=== PATIENT | male | born 1985 ===

== ENCOUNTER 2017-01-12 02:16 | Emergency (ER) | payer SELFPAY ==
[2017-01-12 02:16] VITALS: BMI 22.1
[2017-01-12 02:22] VITALS: TEMP 98.4
--- NOTE | 2017-01-12 02:40 | ED PDOC ---
Arrival/HPI - General Chief Complaint: GI Problem Time Seen by Provider: 01/12/17 02:37 Historian: Patient - History of Present Illness Narrative History of Present Illness (Text): 01/12/17 02:28 A 31 year old male, who has no past medical history, presents to the emergency department complaining of nausea and vomiting for the past 5 days. Patient states he has been taking 5-6 Percocets a day for 3 years. Patient states he stopped taking Percocet 4 days ago and is now experiencing nausea and vomiting. Patient was seen at [facility] 2 days prior, was given IV Fluids, and discharged home , but symptoms have not improved. Patient also experiencing some abdominal pain. Patient denies of diarrhea, fever, chills, chest pain, shortness of breath, cough, headache, urinary symptoms, or any other complaints. Time/Duration: < week (5 days) Symptom Onset: Gradual Symptom Course: Unchanged Activities at Onset: Rest, Light Context: Home Past Medical History - Provider Review Nursing Documentation Reviewed: Yes - Psychiatric Hx Depression: No Hx Emotional Abuse: No Hx Physical Abuse: No Hx Substance Use: Yes (3 years) - Suicidal Assessment Feels Threatened In Home Enviroment: No Family/Social History - Physician Review Nursing Documentation Reviewed: Yes Family/Social History: No Known Family HX Smoking Status: Light Smoker < 10 Cigarettes Daily Hx Alcohol Use: No Hx Substance Use: Yes (3 years) Substance used: Percocet Hx Substance Use Treatment: No Allergies/Home Meds Allergies/Adverse Reactions: Allergies No Known Allergies Allergy (Verified 04/19/12 16:59) Review of Systems - Physician Review All systems were reviewed & negative as marked: Yes - Review of Systems Constitutional: Normal. absent: Fevers, Night Sweats Eyes: Normal ENT: Normal Respiratory: Normal. absent: SOB, Cough Cardiovascular: Normal. absent: Chest Pain Gastrointestinal: Abdominal Pain, Nausea, Vomiting. absent: Diarrhea Genitourinary Male: Normal. absent: Dysuria, Frequency, Urinary Output Changes Musculoskeletal: Normal Skin: Normal Neurological: Normal. absent: Headache Psychiatric: Normal Physical Exam Vital Signs Reviewed: Yes Vital Signs Temp Pulse Resp BP Pulse Ox 01/12/17 04:54 61 18 120/62 96 01/12/17 02:22 98.4 F 63 16 125/85 99 Temperature: Afebrile Blood Pressure: Normal Pulse: Regular Respiratory Rate: Normal Appearance: Positive for: Well-Appearing, Non-Toxic, Comfortable Pain Distress: None Mental Status: Positive for: Alert and Oriented X 3 - Systems Exam Head: Present: Atraumatic, Normocephalic Pupils: Present: PERRL Extroacular Muscles: Present: EOMI Conjunctiva: Present: Normal Mouth: Present: Moist Mucous Membranes Neck: Present: Normal Range of Motion Respiratory/Chest: Present: Clear to Auscultation, Good Air Exchange. No: Respiratory Distress, Accessory Muscle Use Cardiovascular: Present: Regular Rate and Rhythm, Normal S1, S2. No: Murmurs Abdomen: Present: Normal Bowel Sounds. No: Tenderness, Distention, Peritoneal Signs Back: Present: Normal Inspection Upper Extremity: Present: Normal Inspection. No: Cyanosis, Edema Lower Extremity: Present: Normal Inspection. No: Edema Neurological: Present: GCS=15, CN II-XII Intact, Speech Normal Skin: Present: Warm, Dry, Normal Color. No: Rashes Psychiatric: Present: Alert, Oriented x 3, Normal Insight, Normal Concentration Medical Decision Making ED Course and Treatment: 01/12/17 02:35 Impression: 31 year old male with nausea and vomiting. Normal physical exam. Plan: -- CT Abd/Pelvis -- Labs -- IV Fluids -- Zofran -- Reglan -- Ativan -- Reassess and disposition Progress Notes: 01/12/17 04:50 CT Abdomen and Pelvis With Intravenous Contrast FINDINGS: Limitations: Motion artifact - mild. Lower thorax: Linear atelectasis/scarring RIGHT middle lobe. ABDOMEN: Liver: Few too small to characterize lesions. Gallbladder and bile ducts: No calcified stones. No ductal dilation. Pancreas: No ductal dilation. No mass. Spleen: No splenomegaly. Adrenals: No mass. Kidneys and ureters: No mass. No hydronephrosis. Stomach and bowel: [id number] mural thickening of large bowel. No obstruction. Appendix: Normal caliber. No inflammation. PELVIS: Bladder: Unremarkable. Reproductive: Unremarkable as visualized. ABDOMEN and PELVIS: Intraperitoneal space: No significant fluid collection. No free air. Bones/joints: Small lucent lesion with sclerotic margins within RIGHT femur, doubtful significance. No acute fracture. Soft tissues: Unremarkable. Vasculature: Unremarkable. No aneurysm. Lymph nodes: No pathologically enlarged lymph nodes. IMPRESSION: 1. Colitis, nonspecific. Consider inflammatory or infectious etiologies. 2. Incidental/non-acute findings are described above. 01/12/17 06:00 On re-evaluation, patient feels better and is in no acute distress. Tolerating PO. I have discussed the results and plan with the patient, who expresses understanding. Patient in agreement with plan to be discharged home. Patient is stable for discharge. Patient was instructed to follow up with physician or return if symptoms worsen or new concerning symptoms arise. Re-evaluation Time: 06:00 Reassessment Condition: Re-examined, Improved - Lab Interpretations Lab Results: 01/12/17 02:40 01/12/17 02:40 Lab Results 01/12/17 02:40: Sodium 142, Potassium 3.6, Chloride 99, Carbon Dioxide 29, Anion Gap 18, BUN 17, Creatinine 1.0, Est GFR ( Amer) > 60, Est GFR (Non- Af Amer) > 60, Random Glucose 111 H, Calcium 9.8, Total Bilirubin 1.5 H, AST 32 , ALT 51, Alkaline Phosphatase 53, Total Protein 7.6, Albumin 4.6, Globulin 2.9 , Albumin/Globulin Ratio 1.6, Lipase 94 01/12/17 02:40: WBC 13.9 H, RBC 4.58, Hgb 14.2, Hct 41.6 L, MCV 90.8, MCH 31.0, MCHC 34.1, RDW 12.2, Plt Count 324, MPV 10.1, Gran % 80.9 H, Lymph % (Auto) 11.7 L, Tyrrell % (Auto) 7.2 H, Eos % (Auto) 0.1 L, Baso % (Auto) 0.1, Gran # 11.28 H, Lymph # 1.6, Tyrrell # 1.0 H, Eos # 0.0, Baso # 0.01 I have reviewed the lab results: Yes - RAD Interpretation Radiology Orders: 01/12/17 03:29 ABD & PELVIS IV CONTRAST ONLY [CT] Stat - Medication Orders Current Medication Orders: Sodium Chloride (Sodium Chloride 0.9%) 1,000 mls @ 1,000 mls/hr IV .Q1H MIGDALIA Last Admin: 01/12/17 03:47 Dose: Discontinued Medications Iohexol (Omnipaque 350 100 Ml) Confirm Administered Dose 350 mg .ROUTE .STK-MED ONE Stop: 01/12/17 03:36 Lorazepam (Ativan) 0.5 mg IVP ONCE ONE PRN Reason: Protocol Stop: 01/12/17 03:10 Last Admin: 01/12/17 03:24 Dose: 0.5 mg Metoclopramide HCl (Reglan) 10 mg IVP ONCE ONE Stop: 01/12/17 03:09 Last Admin: 01/12/17 03:24 Dose: 10 mg Ondansetron HCl (Zofran Inj) 4 mg IVP STAT STA Stop: 01/12/17 02:38 Last Admin: 01/12/17 02:47 Dose: 4 mg - Scribe Statement Pavel Kay training under Melinda Murcia. Provider Attestation: All medical record entries made by the Dileepibshane were at my direction and personally dictated by me. I have reviewed the chart and agree that the record accurately reflects my personal performance of the history, physical exam, medical decision making, and the department course for this patient. I have also personally directed, reviewed, and agree with the discharge instructions and disposition. Disposition/Present on Arrival - Present on Arrival Any Indicators Present on Arrival: No History of DVT/PE: No History of Uncontrolled Diabetes: No Urinary Catheter: No History of Decub. Ulcer: No History Surgical Site Infection Following: None - Disposition Have Diagnosis and Disposition been Completed?: Yes Diagnosis: Colitis Disposition: HOME/ ROUTINE Disposition Time: 06:00 Patient Problems: Current Active Problems Problem Status Onset Colitis Acute Condition: GOOD Discharge Instructions (ExitCare): Colitis (ED) Prescriptions: Metronidazole [Flagyl] 500 mg PO TID #15 tab Ondansetron [Zofran Odt] 8 mg PO TID PRN #10 odt PRN Reason: Nausea/Vomiting Referrals: PCP,NO [Primary Care Provider] - Follow up with primary
[2017-01-12] MEDS: Sodium Chloride 0.9% 1,000 ML IV SCH ×2 (02:47→03:47)
[2017-01-12 03:14] LABS: BASO # 0.01 K/mm3 (0.0-2.0); BASO % 0.1 % (0.0-3.0); EOS % 0.1 % (1.5-5.0); GRAN # 11.28 (1.4-6.5); GRAN % 80.9 % (50.0-68.0); HEMOGLOBIN 14.2 gm/dL (14.0-18.0); LYMPH # 1.6 (1.2-3.4); LYMPH % 11.7 % (22.0-35.0); MEAN CELL VOLUME 90.8 fL (80.0-105.0); MEAN CORPUSCULAR HGB CONC 34.1 g/dl (31.0-37.0); MEAN PLATELET VOLUME 10.1 fl (7.0-11.0); MONO % 7.2 % (1.0-6.0); PLATELET COUNT 324 10^3/uL (120.0-450.0); RBC 4.58 10^6/uL (3.5-6.1); RED CELL DISTRIBUTION WIDTH 12.2 % (11.5-14.5); WHITE BLOOD COUNT 13.9 10^3/ul (4.5-11.0)
[2017-01-12 03:19] LABS: ALB/GLOB RATIO 1.6 (1.1-1.8); ALBUMIN 4.6 g/dL (3.0-4.8); ALT/SGPT 51 U/L (7-56); AST/SGOT 32 U/L (15-59); BLOOD UREA NITROGEN 17 mg/dL (7-21); CALCIUM 9.8 mg/dL (8.4-10.5); GFR AFRICAN-AMERICAN > 60; GFR NON-AFRICAN AMERICAN > 60; LIPASE 94 U/L (23-300)
[2017-01-12] MEDS ORDERED: Iohexol 350 MG/100 ML VIAL ONE (03:35)
--- NOTE | 2017-01-12 04:40 | CT ---
EXAM: CT Abdomen and Pelvis With Intravenous Contrast CLINICAL HISTORY: 31 years old, male; Pain; Abdominal pain; Patient HX: Rlq pain TECHNIQUE: Axial computed tomography images of the abdomen and pelvis with intravenous contrast. This CT exam was performed using one or more of the following dose reduction techniques: automated exposure control, adjustment of the mA and/or kV according to patient size, and/or use of iterative reconstruction technique. Coronal and sagittal reformatted images were created and reviewed. CONTRAST: 95 mL of OMNIPAQUE 350 administered intravenously. COMPARISON: No relevant prior studies available. FINDINGS: Limitations: Motion artifact - mild. Lower thorax: Linear atelectasis/scarring RIGHT middle lobe. ABDOMEN: Liver: Few too small to characterize lesions. Gallbladder and bile ducts: No calcified stones. No ductal dilation. Pancreas: No ductal dilation. No mass. Spleen: No splenomegaly. Adrenals: No mass. Kidneys and ureters: No mass. No hydronephrosis. Stomach and bowel: Munr-[id number]-thtvpuok mural thickening of large bowel. No obstruction. Appendix: Normal caliber. No inflammation. PELVIS: Bladder: Unremarkable. Reproductive: Unremarkable as visualized. ABDOMEN and PELVIS: Intraperitoneal space: No significant fluid collection. No free air. Bones/joints: Small lucent lesion with sclerotic margins within RIGHT femur, doubtful significance. No acute fracture. Soft tissues: Unremarkable. Vasculature: Unremarkable. No aneurysm. Lymph nodes: No pathologically enlarged lymph nodes. IMPRESSION: 1. Colitis, nonspecific. Consider inflammatory or infectious etiologies. 2. Incidental/non-acute findings are described above.
[2017-01-12 04:55] VITALS: BP 120/62; PULSE 61; RESP 18; O2SAT 96
== END 2017-01-12 06:10 | disposition home or self-care (01) ==
LOC: ED 02:16
DX: K52.9 Noninfective gastroenteritis and colitis, unspecified (principal)
CPT/HCPCS: 74177; 80053; 83690; 85025; 96361; 96374; 96375; 99283; J2060; J2405; J2765; J7040; Q9967

== ENCOUNTER 2017-01-12 18:28 | Emergency (ER) | payer SELFPAY ==
[2017-01-12 18:29] VITALS: BMI 22.1
[2017-01-12 18:34] VITALS: BP 117/70; PULSE 76; TEMP 99.6; O2SAT 98
[2017-01-12] MEDS ORDERED: Sodium Chloride 0.9% 1,000 ML IV SCH (19:45)
[2017-01-12 19:51] LABS: BASO # 0.03 K/mm3 (0.0-2.0); BASO % 0.3 % (0.0-3.0); EOS % 0.1 % (1.5-5.0); GRAN # 6.85 (1.4-6.5); GRAN % 73.5 % (50.0-68.0); HEMOGLOBIN 14.1 gm/dL (14.0-18.0); LYMPH # 1.6 (1.2-3.4); LYMPH % 17.4 % (22.0-35.0); MEAN CELL VOLUME 89.2 fL (80.0-105.0); MEAN CORPUSCULAR HEMOGLOBIN 31.1 pg (25.0-35.0); MEAN CORPUSCULAR HGB CONC 34.9 g/dl (31.0-37.0); MEAN PLATELET VOLUME 9.5 fl (7.0-11.0); MONO # 0.8 (0.1-0.6); MONO % 8.7 % (1.0-6.0); PLATELET COUNT 289 10^3/uL (120.0-450.0); RBC 4.53 10^6/uL (3.5-6.1); WHITE BLOOD COUNT 9.3 10^3/ul (4.5-11.0)
[2017-01-12 19:59] LABS: ALB/GLOB RATIO 1.4 (1.1-1.8); ALBUMIN 4.2 g/dL (3.0-4.8); ALT/SGPT 58 U/L (7-56); AST/SGOT 48 U/L (15-59); BLOOD UREA NITROGEN 13 mg/dL (7-21); CALCIUM 9.2 mg/dL (8.4-10.5); GFR AFRICAN-AMERICAN > 60; GFR NON-AFRICAN AMERICAN > 60
[2017-01-12 20:44] VITALS: RESP 16
--- NOTE | 2017-01-13 02:24 | ED PDOC ---
Arrival/HPI - General Chief Complaint: GI Problem Time Seen by Provider: 01/12/17 18:41 Historian: Patient - History of Present Illness Narrative History of Present Illness (Text): 01/12/17 19:30 Valente Priest is a 31 year old male who presents to the Emergency department complaining of nausea and vomiting today. Patient was seen earlier today for similar complaints after he stopped taking Percocet everyday for 3 years. Patient had full-work up performed, was treated for colitis, and discharged home. Patient states nausea and vomiting returned later in the day. Patient denies any fever, chills, chest pain, shortness of breath, diarrhea, urinary symptoms, back pain, neck pain, headache, dizziness, or any other complaints. Time/Duration: Other (today) Symptom Onset: Gradual Symptom Course: Unchanged Activities at Onset: Rest, Light Context: Home Past Medical History - Provider Review Nursing Documentation Reviewed: Yes - Psychiatric Hx Depression: No Hx Emotional Abuse: No Hx Physical Abuse: No Hx Substance Use: Yes (3 years) - Suicidal Assessment Feels Threatened In Home Enviroment: No Family/Social History - Physician Review Nursing Documentation Reviewed: Yes Family/Social History: Unknown Family HX Smoking Status: Light Smoker < 10 Cigarettes Daily Hx Alcohol Use: No Hx Substance Use: Yes (3 years) Substance used: Percocet Hx Substance Use Treatment: No Allergies/Home Meds Allergies/Adverse Reactions: Allergies No Known Allergies Allergy (Verified 01/12/17 18:34) Review of Systems - Physician Review All systems were reviewed & negative as marked: Yes - Review of Systems Constitutional: Normal. absent: Fevers Eyes: Normal ENT: Normal Respiratory: Normal. absent: SOB, Cough Cardiovascular: Normal. absent: Chest Pain Gastrointestinal: Nausea, Vomiting. absent: Diarrhea Genitourinary Male: Normal. absent: Dysuria, Frequency, Hematuria, Urinary Output Changes Musculoskeletal: Normal. absent: Back Pain, Neck Pain Skin: Normal. absent: Rash Neurological: Normal. absent: Headache, Dizziness Endocrine: Normal Hemo/Lymphatic: Normal Psychiatric: Normal Physical Exam Vital Signs Reviewed: Yes Vital Signs Temp Pulse Resp BP Pulse Ox 01/12/17 20:43 16 98 01/12/17 18:30 99.6 F 76 18 117/70 98 Temperature: Afebrile Blood Pressure: Normal Pulse: Regular Respiratory Rate: Normal Appearance: Positive for: Well-Appearing, Non-Toxic, Comfortable Pain Distress: None Mental Status: Positive for: Alert and Oriented X 3 - Systems Exam Head: Present: Atraumatic, Normocephalic Pupils: Present: PERRL Extroacular Muscles: Present: EOMI Conjunctiva: Present: Normal Mouth: Present: Moist Mucous Membranes Neck: Present: Normal Range of Motion Respiratory/Chest: Present: Clear to Auscultation, Good Air Exchange. No: Respiratory Distress, Accessory Muscle Use Cardiovascular: Present: Regular Rate and Rhythm, Normal S1, S2. No: Murmurs Abdomen: Present: Normal Bowel Sounds. No: Tenderness, Distention, Peritoneal Signs Back: Present: Normal Inspection Upper Extremity: Present: Normal Inspection. No: Cyanosis, Edema Lower Extremity: Present: Normal Inspection. No: Edema Neurological: Present: GCS=15, CN II-XII Intact, Speech Normal Skin: Present: Warm, Dry, Normal Color. No: Rashes Psychiatric: Present: Alert, Oriented x 3, Normal Insight, Normal Concentration Medical Decision Making ED Course and Treatment: 01/12/17 19:30 Impression: 31 year old male complaining of nausea and vomiting. Differential Diagnosis included but are not limited to: vomiting Plan: -- Labs -- IV fluids -- Reglan -- Reassess and disposition Prior Visits: Notes and results from previous visits were reviewed. Pt seen earlier today for similar complaints and discharged home. Progress Notes: 01/12/17 20:40 On reevaluation the patient feels better and is in no acute distress. I have discussed the results and plan with the patient, who expresses understanding. Patient given the opportunity to ask question, all questions were answered and there is agreement with the plan to discharge the patient home. Patient is stable for discharge. Patient was instructed to follow up with physician/clinic in 1-2 days or return if symptoms persist/worsen or new concerning symptoms arise. - Lab Interpretations Lab Results: 01/12/17 19:38 01/12/17 19:38 Lab Results 01/12/17 19:38: Sodium 141, Potassium 3.7, Chloride 101, Carbon Dioxide 27, Anion Gap 17, BUN 13, Creatinine 0.9, Est GFR ( Amer) > 60, Est GFR (Non- Af Amer) > 60, Random Glucose 104, Calcium 9.2, Total Bilirubin 2.0 H, AST 48, ALT 58 H, Alkaline Phosphatase 45, Total Protein 7.4, Albumin 4.2, Globulin 3.1 , Albumin/Globulin Ratio 1.4 01/12/17 19:38: WBC 9.3 D, RBC 4.53, Hgb 14.1, Hct 40.4 L, MCV 89.2, MCH 31.1, MCHC 34.9, RDW 12.0, Plt Count 289, MPV 9.5, Gran % 73.5 H, Lymph % (Auto) 17.4 L, Bee % (Auto) 8.7 H, Eos % (Auto) 0.1 L, Baso % (Auto) 0.3, Gran # 6.85 H, Lymph # 1.6, Bee # 0.8 H, Eos # 0.0, Baso # 0.03 I have reviewed the lab results: Yes - Medication Orders Current Medication Orders: Discontinued Medications Sodium Chloride (Sodium Chloride 0.9%) 1,000 mls @ 1,000 mls/hr IV .Q1H MIGDALIA Last Admin: 01/12/17 19:48 Dose: 1,000 mls/hr Metoclopramide HCl (Reglan) 10 mg IVP ONCE ONE Stop: 01/12/17 19:32 Last Admin: 01/12/17 19:48 Dose: 10 mg - Scribe Statement The provider has reviewed the documentation as recorded by the Delia Murcia Provider Scribe Attestation: All medical record entries made by the Dileepibshane were at my direction and personally dictated by me. I have reviewed the chart and agree that the record accurately reflects my personal performance of the history, physical exam, medical decision making, and the department course for this patient. I have also personally directed, reviewed, and agree with the discharge instructions and disposition. Disposition/Present on Arrival - Present on Arrival Any Indicators Present on Arrival: No History of DVT/PE: No History of Uncontrolled Diabetes: No Urinary Catheter: No History of Decub. Ulcer: No History Surgical Site Infection Following: None - Disposition Have Diagnosis and Disposition been Completed?: Yes Diagnosis: Vomiting alone Disposition: HOME/ ROUTINE Disposition Time: 20:43 Condition: GOOD Discharge Instructions (ExitCare): Acute Nausea and Vomiting (ED) Prescriptions: Metoclopramide [Reglan] 10 mg PO QID #12 tab
== END 2017-01-12 20:44 | disposition home or self-care (01) ==
LOC: ED 18:28
DX: R11.10 Vomiting, unspecified (principal)
CPT/HCPCS: 80053; 85025; 96374; 99283; J2765; J7040

== ENCOUNTER 2017-01-14 00:47 | Emergency (ER) | payer SELFPAY ==
[2017-01-14 00:47] VITALS: BMI 22.1
== END 2017-01-14 02:16 | disposition left against medical advice (07) ==
LOC: ED 00:47
DX: Z02.89 Encounter for other administrative examinations (principal); R11.0 Nausea

== ENCOUNTER 2017-01-19 15:47 | Emergency (ER) | payer SELFPAY ==
[2017-01-19 15:48] VITALS: BMI 22.1
[2017-01-19 15:58] VITALS: TEMP 99
[2017-01-19] MEDS ORDERED: Sodium Chloride 0.9% 1,000 ML IV STA (16:42)
--- NOTE | 2017-01-19 16:55 | ED PDOC ---
Arrival/HPI - General Historian: Patient - General Chief Complaint: GI Problem Time Seen by Provider: 01/19/17 16:14 - History of Present Illness Narrative History of Present Illness (Text): 01/19/17 16:44 31 year old male with history percocet abuse presents with weakness and vomiting. Patient takes percocet recreationally (5-8 10mg daily) for 3 years and stopped 2 weeks ago. Patient started having nausea and vomiting around that time. Patient was here in the ED 1 week ago for vomiting and abdominal pain. He was found to have colitis through the abdominal CT. Patient was discharge on a 5 day course of PO Flagyl. Patient reports the Flagyl made his vomiting worse so he stopped taking it after one day. The abdominal pain resolved but vomiting resists. Patient is only able to tolerate water, anything else makes him to vomiting immediately. The vomiting episodes were NBNB. He vomits whenever he eats. Patient denies having headache, fever, shortness of breath, chest pain, diarrhea, or urinary symptoms. (Destinee Valente) Past Medical History - Provider Review Nursing Documentation Reviewed: Yes - Infectious Disease Hx of Infectious Diseases: None - Psychiatric Hx Depression: No Hx Emotional Abuse: No Hx Physical Abuse: No Hx Substance Use: Yes (3 years) Other/Comment: substance abuse from percocet - Anesthesia Hx Anesthesia: No Hx Anesthesia Reactions: No Hx Malignant Hyperthermia: No - Suicidal Assessment Feels Threatened In Home Enviroment: No Family/Social History - Physician Review Nursing Documentation Reviewed: Yes Family/Social History: Unknown Family HX Smoking Status: Light Smoker < 10 Cigarettes Daily Hx Alcohol Use: No Hx Substance Use: Yes (3 years) Substance used: Percocet Hx Substance Use Treatment: No Allergies/Home Meds Allergies/Adverse Reactions: Allergies No Known Allergies Allergy (Verified 01/19/17 15:58) Home Medications: Home Meds Medication Instructions Recorded Confirmed metroNIDAZOLE [Flagyl] 500 mg PO TID 01/19/17 01/19/17 Review of Systems - Physician Review All systems were reviewed & negative as marked: Yes - Review of Systems Constitutional: Fatigue, Other (chills). absent: Fevers Eyes: Normal ENT: Normal Respiratory: Normal. absent: SOB, Cough Cardiovascular: Normal. absent: Chest Pain, Palpitations, Syncope Gastrointestinal: Nausea, Vomiting, Appetite Changes. absent: Abdominal Pain, Diarrhea Genitourinary Male: Normal. absent: Dysuria, Frequency, Hematuria Musculoskeletal: Normal. absent: Arthralgias, Back Pain, Neck Pain Skin: Normal. absent: Rash, Pruritis, Skin Lesions Neurological: Normal. absent: Headache, Dizziness, Focal Weakness, Speech Changes Endocrine: Normal Hemo/Lymphatic: Normal Psychiatric: Normal. absent: Anxiety Physical Exam Vital Signs Reviewed: Yes Temperature: Afebrile Blood Pressure: Normal Pulse: Tachycardic Respiratory Rate: Normal Appearance: Positive for: Well-Appearing, Non-Toxic, Comfortable Pain Distress: None Mental Status: Positive for: Alert and Oriented X 3 - Systems Exam Head: Present: Atraumatic, Normocephalic Pupils: Present: PERRL Extroacular Muscles: Present: EOMI Conjunctiva: Present: Normal Mouth: Present: Moist Mucous Membranes Neck: Present: Normal Range of Motion Respiratory/Chest: Present: Clear to Auscultation, Good Air Exchange. No: Respiratory Distress, Accessory Muscle Use Cardiovascular: Present: Regular Rate and Rhythm, Normal S1, S2. No: Murmurs Abdomen: Present: Tenderness (epigastric tenderness), Normal Bowel Sounds. No: Distention, Rebound, Guarding, McBurney's Point Tender, Hernias Upper Extremity: Present: Normal Inspection, Neurovascularly Intact. No: Cyanosis, Edema Lower Extremity: Present: Normal Inspection, Neurovascularly Intact. No: Edema Neurological: Present: GCS=15, CN II-XII Intact, Speech Normal Skin: Present: Warm, Dry, Normal Color. No: Rashes Psychiatric: Present: Alert, Oriented x 3, Normal Insight, Normal Concentration Medical Decision Making ED Course and Treatment: 01/19/17 17:01 -CBC, CMP -IVF -Reglan -Pepcid DDx: Dehydration, colitis, gastroenteritis 01/19/17 17:36 CBC and CMP reviewed, unremarkable. Progress Note: Patient's symptoms improved, denies feeling weak, nausea or vomiting. No abdominal or diarrhea reported. Patient is tolerating oral fluid without feel nausea. Patient was instructed to follow at [facility] after ED discharge. Instructed to go to the nearest ED if symptoms worsen or returns. (Destinee Valente) In agreement with resident note which contains more details about the patient. Patient was seen and evaluated with resident. Came up with plan and treatment together. Patient presents to emergency department with 1 week duration of vomiting. Evaluated previously and was discharged on Flagyl, but states he did not take meds because it made symptoms worse. Will order labs, IVF, reglan and pepcid. States he feels fine after treatment and feel comfortable with discharge home. (Reuben Costa) - Lab Interpretations Lab Results: 01/19/17 16:44 01/19/17 16:44 Lab Results 01/19/17 16:44: Sodium 141, Potassium 3.9, Chloride 97 L, Carbon Dioxide 29, Anion Gap 19, BUN 15, Creatinine 0.9, Est GFR ( Amer) > 60, Est GFR (Non- Af Amer) > 60, Random Glucose 87, Calcium 9.6, Total Bilirubin 1.2, AST 29, ALT 46, Alkaline Phosphatase 51, Total Protein 7.4, Albumin 4.5, Globulin 2.9, Albumin/Globulin Ratio 1.6 01/19/17 16:44: WBC 8.4, RBC 4.75, Hgb 14.8, Hct 41.8 L, MCV 88.0, MCH 31.2, MCHC 35.4, RDW 12.1, Plt Count 315, MPV 9.8, Gran % 67.3, Lymph % (Auto) 21.0 L , Bland % (Auto) 10.5 H, Eos % (Auto) 0.7 L, Baso % (Auto) 0.5, Gran # 5.68, Lymph # 1.8, Bland # 0.9 H, Eos # 0.1, Baso # 0.04 - Medication Orders Current Medication Orders: Discontinued Medications Famotidine (Pepcid) 20 mg IVP STAT STA Stop: 01/19/17 16:43 Last Admin: 01/19/17 16:49 Dose: 20 mg Sodium Chloride (Sodium Chloride 0.9%) 1,000 mls @ 999 mls/hr IV .Q1H1M STA Stop: 01/19/17 17:42 Last Admin: 01/19/17 16:46 Dose: 999 mls/hr Metoclopramide HCl (Reglan) 10 mg IVP STAT STA Stop: 01/19/17 16:43 Last Admin: 01/19/17 16:49 Dose: 10 mg - PA / HYDROGEOLOGY PROFESSOR / Resident Statement / has reviewed & agrees with the documentation as recorded. / has examined the patient and agrees with the treatment plan. Disposition/Present on Arrival - Present on Arrival Any Indicators Present on Arrival: No History of DVT/PE: No History of Uncontrolled Diabetes: No Urinary Catheter: No History of Decub. Ulcer: No History Surgical Site Infection Following: None - Disposition Have Diagnosis and Disposition been Completed?: Yes Disposition Time: 17:50 Patient Plan: Discharge - Disposition Diagnosis: Dehydration Disposition: HOME/ ROUTINE Condition: IMPROVED Discharge Instructions (ExitCare): Dehydration (ED) Additional Instructions: Valente Priest, thank you for letting us take care of you today. Your provider was Dr. Costa. You were treated for dehydration. The emergency medical care you received today was directed at your acute symptoms. If you were prescribed any medication, please fill it and take as directed. It may take several days for your symptoms to resolve. Return to the Emergency Department if your symptoms worsen, do not improve, or if you have any other problems. Please contact your doctor or call one of the physicians/clinics you have been referred to that are listed on the Patient Visit Information form that is included in your discharge packet. Bring any paperwork you were given at discharge with you along with any medications you are taking to your follow up visit. Our treatment cannot replace ongoing medical care by a primary care provider (PCP) outside of the emergency department. Thank you for allowing the [facility] team to be part of your care today. Drink water frequently to stay hydrated. Please make an appointment to follow up at [facility] clinic. Patient was instructed to go to the nearest ED if symptoms return or worsen. Referrals: Roni Mena, [Primary Care Provider] - Follow up with primary [facility] at [facility] [Outside] - Follow up with primary Forms: [employer] ([place])
[2017-01-19 17:07] LABS: ALB/GLOB RATIO 1.6 (1.1-1.8); ALBUMIN 4.5 g/dL (3.0-4.8); ALT/SGPT 46 U/L (7-56); AST/SGOT 29 U/L (15-59); BLOOD UREA NITROGEN 15 mg/dL (7-21); CALCIUM 9.6 mg/dL (8.4-10.5); GFR AFRICAN-AMERICAN > 60; GFR NON-AFRICAN AMERICAN > 60
[2017-01-19 17:15] LABS: BASO # 0.04 K/mm3 (0.0-2.0); BASO % 0.5 % (0.0-3.0); EOS # 0.1 (0.0-0.7); EOS % 0.7 % (1.5-5.0); GRAN # 5.68 (1.4-6.5); GRAN % 67.3 % (50.0-68.0); HEMOGLOBIN 14.8 gm/dL (14.0-18.0); LYMPH # 1.8 (1.2-3.4); MEAN CORPUSCULAR HEMOGLOBIN 31.2 pg (25.0-35.0); MEAN CORPUSCULAR HGB CONC 35.4 g/dl (31.0-37.0); MEAN PLATELET VOLUME 9.8 fl (7.0-11.0); MONO # 0.9 (0.1-0.6); MONO % 10.5 % (1.0-6.0); PLATELET COUNT 315 10^3/uL (120.0-450.0); RBC 4.75 10^6/uL (3.5-6.1); RED CELL DISTRIBUTION WIDTH 12.1 % (11.5-14.5); WHITE BLOOD COUNT 8.4 10^3/ul (4.5-11.0)
[2017-01-19 17:51] VITALS: BP 114/65; PULSE 86; RESP 18; O2SAT 100
== END 2017-01-19 17:51 | disposition home or self-care (01) ==
LOC: ED 15:47
DX: E86.0 Dehydration (principal)
CPT/HCPCS: 80053; 85025; 96361; 96374; 96375; 99284; J2765; J7040

== ENCOUNTER 2017-11-23 10:04 | Emergency (ER) | payer MEDICAID ==
[2017-11-23 10:15] VITALS: BMI 20.9
[2017-11-23 10:16] VITALS: BP 118/77; PULSE 70; RESP 18; TEMP 98.5; O2SAT 99
[2017-11-23] MEDS ORDERED: Sodium Chloride 0.9% 1,000 ML IV SCH (10:30)
[2017-11-23] MEDS ORDERED: Sodium Chloride 0.9% 1,000 ML IV STA (10:30)
--- NOTE | 2017-11-23 10:37 | ED PDOC ---
Arrival/HPI - General Time Seen by Provider: 11/23/17 10:22 Historian: Patient - History of Present Illness Narrative History of Present Illness (Text): 11/23/17 10:35 A 32 year old male, whose past medical history includes colitis, no known allergies, presents to the emergency department for vomiting and fatigue for the last 5 days. The patient reports that he was previously seen in [facility] 3 days ago and was discharged. He is complaining of feeling fatigued and vomiting, but he denies any abdominal pain or diarrhea, chest pain, headache, dizziness, denies travel outside of the of the country for the past 1/2 year, or any other complaints at this time. The patient states that he is in the emergency department today because he needs some IV fluids. 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 - Anesthesia Hx Anesthesia: No Hx Anesthesia Reactions: No Hx Malignant Hyperthermia: No - Suicidal Assessment Feels Threatened In Home Enviroment: No Family/Social History - Physician Review Nursing Documentation Reviewed: Yes Family/Social History: No Known Family HX Smoking Status: Light Smoker < 10 Cigarettes Daily Hx Alcohol Use: No Hx Substance Use: Yes (3 years) Substance used: Percocet Hx Substance Use Treatment: No Allergies/Home Meds Allergies/Adverse Reactions: Allergies No Known Allergies Allergy (Verified 01/19/17 15:58) Home Medications: Home Meds Medication Instructions Recorded Confirmed metroNIDAZOLE [Flagyl] 500 mg PO TID 01/19/17 01/19/17 Review of Systems - Physician Review All systems were reviewed & negative as marked: Yes - Review of Systems Constitutional: Fatigue. absent: Fevers Respiratory: absent: SOB, Cough, Sputum Cardiovascular: absent: Chest Pain Gastrointestinal: Nausea, Vomiting. absent: Abdominal Pain Musculoskeletal: absent: Arthralgias, Back Pain Skin: absent: Rash, Pruritis Neurological: absent: Headache, Dizziness Psychiatric: absent: Anxiety, Depression, Suicidal Ideation Physical Exam Vital Signs Reviewed: Yes Vital Signs Temp Pulse Resp BP Pulse Ox 11/23/17 10:15 98.5 F 70 18 118/77 99 Temperature: Afebrile Blood Pressure: Normal Pulse: Regular Respiratory Rate: Normal Appearance: Positive for: Well-Appearing, Non-Toxic, Comfortable Pain Distress: None Mental Status: Positive for: Alert and Oriented X 3 - Systems Exam Head: Present: Atraumatic, Normocephalic Pupils: Present: PERRL Extroacular Muscles: Present: EOMI Conjunctiva: Present: Normal Ears: Present: NORMAL TM, Normal Canal. No: Erythema Mouth: Present: Moist Mucous Membranes Pharnyx: No: ERYTHEMA, EXUDATE, TONSILS ENLARGED Nose (External): Present: Atraumatic. No: Abrasion, Contusion, Laceration, Lesions Nose (Internal): Present: Normal Inspection, No Active Bleeding. No: Rhinorrhea , Septal Deviation, Septal Hematoma, Epistaxis Neck: Present: Normal Range of Motion, Trachea Midline. No: MIDLINE TENDERNESS , Paraspinal Tenderness, Lymphadenopathy Respiratory/Chest: Present: Clear to Auscultation, Good Air Exchange. No: Respiratory Distress, Accessory Muscle Use, Wheezes, Retracting, Rhonchi Cardiovascular: Present: Regular Rate and Rhythm, Normal S1, S2. No: Murmurs Abdomen: Present: Normal Bowel Sounds, Other (negative betancourt signs, negative mcburney tenderness. ). No: Tenderness, Distention, Peritoneal Signs, Rebound, Guarding Back: Present: Normal Inspection Upper Extremity: Present: Normal Inspection. No: Cyanosis, Edema Lower Extremity: Present: Normal Inspection, NORMAL PULSES, Normal ROM, Capillary Refill < 2 s. No: Edema, Deformity Neurological: Present: GCS=15, CN II-XII Intact, Speech Normal, Motor Func Grossly Intact, Gait Normal, Memory Normal Skin: Present: Warm, Dry, Normal Color. No: Rashes Psychiatric: Present: Alert, Oriented x 3, Normal Insight, Normal Concentration Medical Decision Making ED Course and Treatment: 11/23/17 10:36 -labs/ck/ua -IVF/pepcid/zofran -Observe and reassess 11/23/17 14:14 -Chest xray show no active disease -Abdominal xray constipation with no obstruction, magcitrate ordered. -Abdominal sonogram Findings suggest mild fatty hepatic infiltration however other infiltrative hepatocellular disease process not excluded. -Labs are non-significant except K+ 3.3 (potassium chloride 40meq po ordered), elevation of AST/ALT and mild elevation of bilirubin noted. -UA show no UTI but there is glucose/protein -Drug screen show no acute findings -Pt. refused additional fluid or admission for observation, I offered admission but he declined. -I discussed the case and labs/radiology result with Dr. Judd, he suggest to discharge home with further testing or admission indicated at this time. Pt. has no abdominal pain, will discharge home. -I advised the patient to see his own pmd for annual check up to check hgba1c and outpatient GI follow up for this vomiting including h.pylori along with annual abdominal sonogram follow up regarding about this sonogram findings today. Pt. verbally expressed understanding. -Pt. is drinking fluid in the ER and eating, will discharge home and refused further IVF hydration. -Discharge home with magnesium citrate, pepcid, zofran, clear fluid diet, BRAT diet, avoid dairy product, follow up with your own pmd and GI within 2 days, return to the ER for any new or worsening signs or symptoms. - Lab Interpretations Lab Results: 11/23/17 10:42 11/23/17 10:42 Lab Results 11/23/17 10:42: WBC 11.1 H D, RBC 4.52, Hgb 13.8 L, Hct 39.9 L, MCV 88.3, MCH 30.5, MCHC 34.6, RDW 12.4, Plt Count 332, MPV 10.0, Gran % 68.2 H, Lymph % (Auto ) 22.1, Barnes % (Auto) 9.3 H, Eos % (Auto) 0.1 L, Baso % (Auto) 0.3, Gran # 7.55 H, Lymph # (Auto) 2.4, Barnes # (Auto) 1.0 H, Eos # (Auto) 0.0, Baso # (Auto) 0.03 11/23/17 10:42: Sodium 139, Potassium 3.3 L, Chloride 95 L, Carbon Dioxide 32, Anion Gap 15, BUN 11, Creatinine 1.0, Est GFR ( Amer) > 60, Est GFR (Non- Af Amer) > 60, Random Glucose 109, Calcium 9.2, Magnesium 1.9, Total Bilirubin 1.5 H, AST 60 H, ALT 87 H, Alkaline Phosphatase 50, Total Creatine Kinase 196, Total Protein 7.2, Albumin 4.5, Globulin 2.7, Albumin/Globulin Ratio 1.7, Lipase 75 11/23/17 10:40: Urine Opiates Screen Negative, Urine Methadone Screen Negative, Ur Barbiturates Screen Negative, Ur Phencyclidine Scrn Negative, Ur Amphetamines Screen Negative, U Benzodiazepines Scrn Negative, U Oth Cocaine Metabols Negative, U Cannabinoids Screen Negative 11/23/17 10:40: Urine Color Light orange, Urine Appearance Clear, Urine pH 6.5, Ur Specific Hartland 1.020, Urine Protein 100 H, Urine Glucose (UA) 100 H, Urine Ketones Trace H, Urine Blood Trace-lysed H, Urine Nitrate Negative, Urine Bilirubin Moderate H, Urine Urobilinogen >=8.0, Ur Leukocyte Esterase Negative, Urine RBC 1 - 3, Urine WBC 0 - 2, Ur Epithelial Cells 1 - 3, Amorphous Sediment Small, Urine Bacteria Neg, Urine Other Mucus - RAD Interpretation Radiology Orders: 11/23/17 10:31 CHEST PORTABLE [RAD] Stat 11/23/17 11:14 ABD 2 VIEWS (FLAT/UP OR DECUB) [RAD] Stat ABDOMEN COMPLETE [US] Stat Chest xray: HISTORY: Medical clearance COMPARISON: TheNo prior. FINDINGS: LUNGS: No active pulmonary disease. PLEURA: No significant pleural effusion identified, no pneumothorax apparent. CARDIOVASCULAR: Normal. OSSEOUS STRUCTURES: No significant abnormalities. VISUALIZED UPPER ABDOMEN: Normal. OTHER FINDINGS: None. IMPRESSION: No active disease. Abdominal xray: HISTORY: vomiting, r/o obstruction COMPARISON: No prior. FINDINGS: BOWEL: No evidence of acute mechanical bowel obstruction. . Stool and air seen throughout the large bowel suggesting mild fecal retention. No evidence of free intraperitoneal air seen under the diaphragmatic surfaces BONES: Normal. OTHER FINDINGS: None. IMPRESSION: No evidence of acute mechanical bowel obstruction. Findings suggest mild fecal retention/constipation. Abdominal sonogram: HISTORY: Continuous vomiting. Questionable cholecystitis COMPARISON: Correlation made with plain film radiographs of the abdomen obtained earlier same day. Comparison also made with CT scan of the abdomen pelvis 01/12/2017. TECHNIQUE: Sonographic evaluation of the abdomen. FINDINGS: LIVER: Measures liver measures approximately 15 cm in CC dimension. . Smooth contour with slight increased hepatic echotexture suggesting fatty infiltration however other infiltrative hepatic cellular disease process not excluded. . No hepatic masses seen on images presented. . No significant intrahepatic bile duct dilatation. GALLBLADDER: Unremarkable. No gallstones. No pericholecystic fluid collections. No evidence sonographic Betnacourt sign COMMON BILE DUCT: Measures 2.8 mm. No stones. No dilatation. PANCREAS: Unremarkable as visualized. No mass. No ductal dilatation. RIGHT KIDNEY: Measures 10.2 x 4.2 x 5.4cm. Normal echogenicity. No calculus, mass, or hydronephrosis. LEFT KIDNEY: Measures 10.5 x 6.2 x 5.8cm. Normal echogenicity. No calculus, mass, or hydronephrosis. SPLEEN: Spleen exhibits normal size measuring approximately 11 cm. Spleen exhibits normal contour and echotexture. No splenic masses seen on images presented. AORTA: Unremarkable IVC: Unremarkable OTHER FINDINGS: None. IMPRESSION: Findings suggest mild fatty hepatic infiltration however other infiltrative hepatocellular disease process not excluded. Round Cutter Operator: Radiologist - Medication Orders Current Medication Orders: Sodium Chloride (Sodium Chloride 0.9%) 1,000 mls @ 500 mls/hr IV .Q2H MIGDALIA Last Admin: 11/23/17 10:43 Dose: 500 mls/hr eMAR Start Stop Document 11/23/17 10:43 OCS (Rec: 11/23/17 10:43 [id number] [id number]) Intravenous Solution Start Date 11/23/17 Start Time 10:43 End Date 11/23/17 End time 12:43 Total Infusion Time 120 Discontinued Medications Famotidine (Pepcid) 20 mg IVP STAT STA Stop: 11/23/17 10:31 Last Admin: 11/23/17 10:43 Dose: 20 mg IVP Administration Document 11/23/17 10:43 OCS (Rec: 11/23/17 10:43 OCS [id number]) Charges for Administration # of IVP Administrations 1 Sodium Chloride (Sodium Chloride 0.9%) 1,000 mls @ 999 mls/hr IV .Q1H1M STA Stop: 11/23/17 11:30 Last Admin: 11/23/17 12:09 Dose: Not Given Non-Admin Reason: Patient Refused Magnesium Citrate (Citrate Of Mag) 300 ml PO ONCE ONE Stop: 11/23/17 13:25 Last Admin: 11/23/17 13:40 Dose: 300 ml Ondansetron HCl (Zofran Inj) 4 mg IVP STAT STA Stop: 11/23/17 10:31 Last Admin: 11/23/17 10:43 Dose: 4 mg IVP Administration Document 11/23/17 10:43 OCS (Rec: 11/23/17 10:43 OCS [id number]) Charges for Administration # of IVP Administrations 1 Potassium Chloride (K-Dur 20 Meq Er Tab) 40 meq PO STAT STA Stop: 11/23/17 11:16 Last Admin: 11/23/17 12:14 Dose: 40 meq - PA / GALLERY OR MUSEUM CURATOR / Resident Statement MD/DO has reviewed & agrees with the documentation as recorded. - Scribe Statement The provider has reviewed the documentation as recorded by the Delia Parker Provider Scribe Attestation: All medical record entries made by the Dileepibshane were at my direction and personally dictated by me. I have reviewed the chart and agree that the record accurately reflects my personal performance of the history, physical exam, medical decision making, and the department course for this patient. I have also personally directed, reviewed, and agree with the discharge instructions and disposition. Disposition/Present on Arrival - Present on Arrival Any Indicators Present on Arrival: No History of DVT/PE: No History of Uncontrolled Diabetes: No Urinary Catheter: No History of Decub. Ulcer: No History Surgical Site Infection Following: None - Disposition Have Diagnosis and Disposition been Completed?: Yes Diagnosis: Hypokalemia, Vomiting, Constipation, Abnormal urine findings, Fatty liver Disposition: HOME/ ROUTINE Disposition Time: 10:44 Patient Plan: Discharge Patient Problems: Current Active Problems Problem Status Onset Hypokalemia Acute Vomiting Acute Constipation Acute Abnormal urine findings Acute Condition: IMPROVED Additional Instructions: -Discharge home with magnesium citrate, pepcid, zofran, clear fluid diet, BRAT diet, avoid dairy product, follow up with your own pmd and GI within 2 days, return to the ER for any new or worsening signs or symptoms. Prescriptions: Famotidine [Pepcid] 20 mg PO BID #20 tab Ondansetron [Zofran Odt] 4 mg PO TID PRN #15 odt PRN Reason: Other Referrals: Antonio Briscoe MD [Staff Provider] - Follow up with primary [facility] at [facility] [place]] - Follow up with primary Forms: WORK NOTE
[2017-11-23 10:56] LABS: PH,URINE 6.5 (4.7-8.0); URINE APPEARANCE CLEAR (CLEAR); URINE BILIRUBIN MODERATE (NEGATIVE); URINE BLOOD TRACE-LYSED (NEGATIVE); URINE GLUCOSE (UA) 100 mg/dL (NEGATIVE); URINE LEUKOCYTE ESTERASE NEGATIVE Leu/uL (NEGATIVE); URINE PROTEIN 100 mg/dL (<30 mg/dL); URINE UROBILINOGEN >=8.0 E.U./dL (<1 E.U./dL)
[2017-11-23 10:57] LABS: URINE COLOR LIGHT ORANGE (YELLOW)
[2017-11-23 11:12] LABS: URINE WBC 0 - 2 /hpf (0-6)
[2017-11-23 11:12] LABS: ALB/GLOB RATIO 1.7 (1.1-1.8); ALBUMIN 4.5 g/dL (3.0-4.8); ALT/SGPT 87 U/L (7-56); AST/SGOT 60 U/L (17-59); BASO # 0.03 K/mm3 (0.0-2.0); BASO % 0.3 % (0.0-3.0); BLOOD UREA NITROGEN 11 mg/dL (7-21); CALCIUM 9.2 mg/dL (8.4-10.5); EOS % 0.1 % (1.5-5.0); GFR AFRICAN-AMERICAN > 60; GFR NON-AFRICAN AMERICAN > 60; GRAN # 7.55 (1.4-6.5); GRAN % 68.2 % (50.0-68.0); HEMOGLOBIN 13.8 g/dL (14.0-18.0); LIPASE 75 U/L (23-300); LYMPH # 2.4 (1.2-3.4); LYMPH % 22.1 % (22.0-35.0); MEAN CELL VOLUME 88.3 fl (80.0-105.0); MEAN CORPUSCULAR HEMOGLOBIN 30.5 pg (25.0-35.0); MEAN CORPUSCULAR HGB CONC 34.6 g/dl (31.0-37.0); MONO % 9.3 % (1.0-6.0); RBC 4.52 10^6/uL (3.5-6.1); RED CELL DISTRIBUTION WIDTH 12.4 % (11.5-14.5); WHITE BLOOD COUNT 11.1 10^3/ul (4.5-11.0)
[2017-11-23 11:13] LABS: URINE AMORPHOUS SEDIMENT SMALL; URINE BACTERIA NEG (NEG)
[2017-11-23] MEDS ORDERED: Potassium Chloride 20 mEq ER Tab PO STA (11:15)
[2017-11-23 11:16] LABS: BARBITURATES, UR NEGATIVE (NEGATIVE); BENZODIAZEPINES, UR NEGATIVE (NEGATIVE); OPIATES, UR NEGATIVE (NEGATIVE); PHENCYCLIDINE, UR NEGATIVE (NEGATIVE)
--- NOTE | 2017-11-23 11:29 | RAD ---
HISTORY: Medical clearance COMPARISON: TheNo prior. FINDINGS: LUNGS: No active pulmonary disease. PLEURA: No significant pleural effusion identified, no pneumothorax apparent. CARDIOVASCULAR: Normal. OSSEOUS STRUCTURES: No significant abnormalities. VISUALIZED UPPER ABDOMEN: Normal. OTHER FINDINGS: None. IMPRESSION: No active disease.
--- NOTE | 2017-11-23 13:03 | RAD ---
HISTORY: vomiting, r/o obstruction COMPARISON: No prior. FINDINGS: BOWEL: No evidence of acute mechanical bowel obstruction. . Stool and air seen throughout the large bowel suggesting mild fecal retention. No evidence of free intraperitoneal air seen under the diaphragmatic surfaces BONES: Normal. OTHER FINDINGS: None. IMPRESSION: No evidence of acute mechanical bowel obstruction. Findings suggest mild fecal retention/constipation.
[2017-11-23] MEDS ORDERED: Magnesium Citrate Oral SOL (300 ml) PO ONE (13:24)
--- NOTE | 2017-11-23 14:02 | US ---
HISTORY: Continuous vomiting. Questionable cholecystitis COMPARISON: Correlation made with plain film radiographs of the abdomen obtained earlier same day. Comparison also made with CT scan of the abdomen pelvis 01/12/2017. TECHNIQUE: Sonographic evaluation of the abdomen. FINDINGS: LIVER: Measures liver measures approximately 15 cm in CC dimension. . Smooth contour with slight increased hepatic echotexture suggesting fatty infiltration however other infiltrative hepatic cellular disease process not excluded. . No hepatic masses seen on images presented. . No significant intrahepatic bile duct dilatation. GALLBLADDER: Unremarkable. No gallstones. No pericholecystic fluid collections. No evidence sonographic Betancourt sign COMMON BILE DUCT: Measures 2.8 mm. No stones. No dilatation. PANCREAS: Unremarkable as visualized. No mass. No ductal dilatation. RIGHT KIDNEY: Measures 10.2 x 4.2 x 5.4cm. Normal echogenicity. No calculus, mass, or hydronephrosis. LEFT KIDNEY: Measures 10.5 x 6.2 x 5.8cm. Normal echogenicity. No calculus, mass, or hydronephrosis. SPLEEN: Spleen exhibits normal size measuring approximately 11 cm. Spleen exhibits normal contour and echotexture. No splenic masses seen on images presented. AORTA: Unremarkable IVC: Unremarkable OTHER FINDINGS: None. IMPRESSION: Findings suggest mild fatty hepatic infiltration however other infiltrative hepatocellular disease process not excluded.
== END 2017-11-23 14:10 | disposition home or self-care (01) ==
LOC: ED 10:04
DX: E87.6 Hypokalemia (principal); K76.0 Fatty (change of) liver, not elsewhere classified; R82.90 Unspecified abnormal findings in urine; R11.10 Vomiting, unspecified; K59.00 Constipation, unspecified
CPT/HCPCS: 71045; 74019; 76700; 80053; 80324; 80345; 80346; 80349; 80353; 80358; 80361; 81001; 82550; 83690; 83735; 83992; 85025; 96361; 96374; 96375; 99282; J2405; J7030